=== PATIENT | male | born 1960 | race Caucasian/White ===

== ENCOUNTER 2019-01-01 11:44 | Outpatient (CLI) | payer BC ==
[~2019-01-01 11:44] MED LIST: CARV25TA12 PO; FENO160T PO; FLUT1BLS3 IH; HYDR-3240 PO; ROSU20TA2 PO
[2019-01-01] MEDS ORDERED: LIDOCAINE 1%, 20ML ONE (11:58)
== END 2019-01-01 23:59 | disposition home or self-care (01) ==
LOC: RAD 11:44
PROVIDERS: ATTEND Urology
DX: T83.022A Displacement of nephrostomy catheter, initial encounter (principal); Y83.8 Other surgical procedures as the cause of abnormal reaction of the patient, or of later complication, without mention of misadventure at the time of the procedure
CPT/HCPCS: 50435; J3490